=== PATIENT | male | born 1975 | race Caucasian/White ===

== ENCOUNTER 2017-03-24 08:10 | Emergency (ER) | payer SELFPAY ==
[~2017-03-24 08:10] MED LIST: NO MEDICATIONS; NORCO1 TAB 10/3 PO; VOLTAREN75 MG PO
[2017-03-24] MEDS ORDERED: NO MEDICATIONS (08:29)
== END 2017-03-24 09:35 | disposition home or self-care (01) ==
LOC: SED 08:10
DX: B34.9 Viral infection, unspecified (principal); F17.200 Nicotine dependence, unspecified, uncomplicated; Z88.0 Allergy status to penicillin
CPT/HCPCS: 99282

== ENCOUNTER 2017-05-20 18:18 | Emergency (ER) | payer SELFPAY ==
--- NOTE | ~2017-05-20 | CR181 ---
[facility] A Service of [facility] RADIOLOGY TEXT RESULTS PATIENT: ROMANA CLEMONS LOCATION: [facility] : 77 UNIT #: [id number] AGE: [address]: Ki Lutz SEX: M ORDER DR: [id number] [facility] [address] [place], [place] [address] [id number] MR#: [id number] Acc #: [id number] NAME: ROMANA CLEMONS : 1975 SEX: M STUDY DATE/TIME: 05/20/2017 20:00 UNIT: [facility] ROOM: STUDY DESCRIPTION: CR Lumbar Spine 2 or 3 Views Attending Physician: Ki Lutz P.A.-C. Ordering Physician: Ki Lutz P.A.-C. Primary Care Physician: No Primary Care Physician MEDICAL IMAGING REPORT This report is preliminary unless electronic signature is present EXAM Lumbar spine, 2 or 3 views. HISTORY Low back pain radiates down the right leg for 4 weeks. It has been worsening over time. There is no known injury COMMENT AP, lateral and lumbosacral views of the lumbar spine reviewed. COMPARISON No previous. FINDINGS The spine is numbered assuming that S1 is partially lumbarized and that there is a hypoplastic S1-2 intervertebral disc. There is some straightening of lumbar lordosis. There is relative preservation of intervertebral disc heights. There is no acute fracture or bone destruction suspected. Patient's clothing partly obscures the sacrum on the frontal view. IMPRESSION Essentially normal plain film assessment of the lumbar spine. If symptoms persist and more information is needed, the patient is best assessed further with an MRI if he is a candidate. Dictated by... Chel Joyce M.D. THIS IS AN ELECTRONICALLY VERIFIED REPORT Chel Joyce M.D. at 05/21/2017 10:37 AM [facility] A Service [facility] RADIOLOGY TEXT RESULTS PATIENT: ROMANA CLEMONS LOCATION: [facility] : 77 UNIT #: [id number] AGE: [address]: Ki Lutz PAC SEX: M ORDER DR: Bryan TD: 05/21/2017 01:43 JOB #: [id number] MEDICAL IMAGING REPORT Page 1 of 1 COPY
== END 2017-05-20 21:18 | disposition home or self-care (01) ==
LOC: CFTX 18:18 → CED 18:18 → CFTX 20:19
DX: M54.5 Low back pain (principal); I73.00 Raynaud's syndrome without gangrene; F17.210 Nicotine dependence, cigarettes, uncomplicated; Z88.0 Allergy status to penicillin
CPT/HCPCS: 72100; 99283